=== PATIENT | female | born 2000 | race African-American/Black ===

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

== ENCOUNTER 2019-02-07 14:31 | Emergency (ER) | payer SELFPAY ==
--- NOTE | 2019-02-07 15:30 | ER Document Report ---
ED Medical Screen (RME) - General Chief Complaint: Vag Bleeding, +preg <12wks Stated Complaint: VAGINAL BLEEDING Time Seen by Provider: 02/07/19 15:25 TRAVEL OUTSIDE OF THE U.S. IN LAST 30 DAYS: No - HPI Notes: 02/07/19 15:29 Patient is a 18-year-old female approximately 6 weeks by gestation who presents complaining of bleeding, cramping that began 2 days ago. She still able to eat and drink without difficulty. She is urinating normally and having normal bowel movements. She has no concern of STD or STI. Denies drug allergies. No other surgical history to her abdomen. Denies MARKS, fever, neck pain, URI, CP, SOB, dysuria, back pain, or rash. I have treated and performed a rapid initial assessment of this patient. A comprehensive ED assessment and evaluation of the patient, analysis of test results and completion of medical decision making process will be conducted by additional ED providers. PHYSICAL EXAMINATION: GENERAL: Well-appearing, well-nourished and in no acute distress. A&Ox4. Answers questions appropriately. LUNGS: Breath sounds clear to auscultation bilaterally and equal. No wheezes rales or rhonchi. HEART: Regular rate and rhythm without murmurs, rubs, gallops. ABDOMEN: Soft, nondistended abdomen. No guarding, no rebound. Normal bowel sounds present. No CVA tenderness bilaterally. Grossly nontender (cannot elicit thorough abd exam w/o bed, however). - Related Data Allergies/Adverse Reactions: No Known Allergies Allergy (Verified 02/07/19 14:34) Past Medical History - General Last Menstrual Period: 12/21/18 - Social History Frequency of alcohol use: None Drug Abuse: None - Past Medical History Cardiac Medical History: Reports: Hx Hypertension - gestational Pulmonary Medical History: Reports: Hx Asthma Renal/ Medical History: Denies: Hx Peritoneal Dialysis Physical Exam - Vital signs Vitals: Temp Pulse Resp BP Pulse Ox 98.2 F 68 18 131/68 H 99 02/07/19 14:55 02/07/19 14:55 02/07/19 14:55 02/07/19 14:55 02/07/19 14:55 Course - Vital Signs Vital signs: Temp Pulse Resp BP Pulse Ox 98.2 F 68 18 131/68 H 99 02/07/19 14:55 02/07/19 14:55 02/07/19 14:55 02/07/19 14:55 02/07/19 14:55
[2019-02-07 16:31] LABS: APPEARANCE,URINE SLIGHTLY-CLOUDY; BILIRUBIN,URINE NEGATIVE (NEGATIVE); COLOR,URINE YELLOW; GLUCOSE, URINE NEGATIVE (NEGATIVE); KETONES,URINE NEGATIVE (NEGATIVE); LEUKOCYTE ESTERASE,URINE TRACE (NEGATIVE); NITRITE,URINE NEGATIVE (NEGATIVE); PROTEIN,URINE 30 mg/dL (NEGATIVE); URINE SPECIFIC GRAVITY 1.017
[2019-02-07 16:34] LABS: ABSOLUTE BASOPHILS # (AUTO) 0.1 10^3/uL (0.0-0.2); ABSOLUTE EOSINOPHILS # (AUTO) 0.4 10^3/uL (0.0-0.6); ABSOLUTE LYMPHOCYTES (AUTO) 2.9 10^3/uL (0.5-4.7); ABSOLUTE MONOCYTES (AUTO) 0.7 10^3/uL (0.1-1.4); ABSOLUTE NEUT (AUTO) 3.6 10^3/uL (1.7-8.2); BASOPHILS % (AUTO) 0.8 % (0-2); EOSINOPHILS % (AUTO) 4.7 % (0-6); HEMATOCRIT 39.7 % (36.0-47.0); LYMPHOCYTES % (AUTO) 38.3 % (13-45); MEAN CORPUSCULAR HEMOGLOBIN 24.5 pg (27.0-33.4); MEAN CORPUSCULAR HGB CONC 32.8 g/dL (32.0-36.0); MEAN CORPUSCULAR VOLUME 75 fl (80-97); MONOCYTES % (AUTO) 8.6 % (3-13); PLATELET COUNT 270 10^3/uL (150-450); RED BLOOD COUNT 5.33 10^6/uL (3.72-5.28); RED CELL DISTRIBUTION WIDTH 15.4 % (11.5-14.0); SEGMENTED NEUTROPHILS % (AUTO) 47.6 % (42-78); TOTAL CELLS COUNTED % (AUTO) 100 %; WHITE BLOOD COUNT 7.7 10^3/uL (4.0-10.5)
--- NOTE | 2019-02-07 17:20 | RADIOLOGY REPORT (SQ) ---
EXAM DESCRIPTION: U/S OB TRANSVAG W/DOPPLER COMPLETED DATE/TIME: 02/07/2019 4:46 pm REASON FOR STUDY: bleeding/ COMPARISON: None. TECHNIQUE: Transvaginal static and realtime grayscale images acquired of the pelvis. Additional florina cted spectral and color Doppler images recorded. All images stored on PACs. bHCG: Not available. CLINICAL DATES: 6 weeks, 6 days LIMITATIONS: None. FINDINGS: No candidate intrauterine gestation identified. UTERUS: No masses. No anomalies. CERVICAL LENGTH: 3.6 cm Closed. RIGHT ADNEXA: Normal ovary with normal vascular flow. No adnexal free fluid. No adnexal masses. LEFT ADNEXA: Normal ovary with normal vascular flow. No adnexal free fluid. No adnexal masses. FREE FLUID: Small volume nonspecific free fluid in the posterior cul-de-sac. OTHER: No other significant finding. IMPRESSION: 1. No candidate intrauterine gestation identified. Early of unknown location . Recommend ectopic precautions, serial beta HCG, and follow-up ultrasound in 7 to 14 days to ensure continued viability and development. 2. Small volume nonspecific free fluid in the posterior cul-de-sac. Trimester of : First - 0 to 13 weeks. TECHNICAL DOCUMENTATION: JOB ID: [id number] [employer]- All Rights Reserved rev-01/16 Reading location - IP/workstation name: [email or web address]
[2019-02-07] MEDS ORDERED: OXYCODONE-ACETAMINOPHEN 5-325 MG TABLET PO ONE (17:35)
--- NOTE | 2019-02-07 17:57 | ER Document Report ---
ED General - General Chief Complaint: Vag Bleeding, +preg <12wks Stated Complaint: VAGINAL BLEEDING Time Seen by Provider: 02/07/19 15:25 Mode of Arrival: Ambulatory Information source: Patient TRAVEL OUTSIDE OF THE [place].S[place] IN LAST 30 DAYS: No - HPI Patient complains to provider of: Early , back pain, pelvic cramping, vaginal bleeding Onset: Other - 2 days ago Onset/Duration: Persistent Quality of pain: Cramping, Sharp Severity: Severe Pain Level: 5 Associated symptoms: None Exacerbated by: Denies Relieved by: Denies Similar symptoms previously: No Recently seen / treated by doctor: No Notes: 18-year-old -[place] female 3 para 2 approximately 6 weeks gestation with heavy vaginal bleeding with clots, bad pelvic cramping and low back pain. Symptoms for 2 days. Also feeling dizzy. - Related Data Allergies/Adverse Reactions: No Known Allergies Allergy (Verified 02/07/19 14:34) Past Medical History - General Information source: Patient Last Menstrual Period: 12/21/18 - Social History Smoking Status: Never Smoker Frequency of alcohol use: None Drug Abuse: None Family History: None, Reviewed & Not Pertinent Patient has suicidal ideation: No Patient has homicidal ideation: No - Past Medical History Cardiac Medical History: Reports: Hx Hypertension - gestational Pulmonary Medical History: Reports: Hx Asthma Renal/ Medical History: Denies: Hx Peritoneal Dialysis Review of Systems - Review of Systems Notes: Constitutional: No fevers. No chills. EENT: No eye redness. No eye pain. No ear pain. No sore throat. Cardiovascular: No chest pain. No palpitations. Respiratory: No cough. No shortness of breath. No respiratory distress. Gastrointestinal: No abdominal pain. No nausea, vomiting, or diarrhea. Genitourinary: Positive for pelvic bleeding, pelvic pain, cramps Musculoskeletal: Atraumatic. No swelling. No deformities. Skin: No rash or lesions. Lymphatic: No swollen lymph nodes. Neurologic: No headache. No syncope. Psychiatric: No suicidal or homicidal ideation. Physical Exam - Vital signs Vitals: Temp Pulse Resp BP Pulse Ox 98.2 F 68 18 131/68 H 99 02/07/19 14:55 02/07/19 14:55 02/07/19 14:55 02/07/19 14:55 02/07/19 14:55 - Notes Notes: General: Well-developed, well-nourished. In no acute distress. Non-toxic appearing. Cardiac: Well-perfused. Regular rate and rhythm. No murmurs, rubs, or gallops. Pulmonary: No respiratory distress. No cyanosis. Bilateral lung fiels are clear to auscultation. Abdominal: Bilateral abdominopelvic tenderness. No guarding or rebound. Nondistended. Bowel sounds present all 4 quadrants HEENT: Head is atraumatic. Conjunctivae not reddened. No tearing. PERRL. EOMI. Orbits atraumatic. No periorbital swelling or erythema. Oropharynx is without erythema, swelling, or exudates. Neck: Supple. No adenopathy. No meningismus. Dermatologic: Warm with good turgor. No rash. Atraumatic. Chest: Atraumatic. No chest wall tenderness to palpation. Musculoskeletal: Moves all extremities well. No range of motion deficits. no muscular or joint tenderness. No paraspinal muscle tenderness. no midline spinal tenderness or step-off. Genitourinary: Examination deferred Neurologic: No gross neurologic deficits. Psychiatric: Normal mood. Course - Re-evaluation Re-evalutation: 02/07/19 18:07 Usual threatened orders entered in [facility]. We will see what shows up. 02/07/19 18:09 Labs reviewed. hCG less than 2. Qualitative test negative. No evidence of intrauterine gestation. Seems a little bit odd for the patient to already have a negative test after 2 days of bleeding even if she was 6 weeks along. I questioned her about whether that was possible and she said that another hospital had confirmed that she was . In any event her beta is less than 2 her qualitative is negative and her pelvic ultrasound shows no evidence of IUP. We will treat this as a miscarriage. I will have her follow-up with the health department as needed. Naproxen as a prescription for pain. - Vital Signs Vital signs: Temp Pulse Resp BP Pulse Ox 98.2 F 68 18 131/68 H 99 02/07/19 14:55 02/07/19 14:55 02/07/19 14:55 02/07/19 14:55 02/07/19 14:55 - Laboratory Result Diagrams: 02/07/19 16:10 Laboratory results interpreted by me: 02/07/19 02/07/19 16:10 16:10 RBC 5.33 H MCV 75 L MCH 24.5 L RDW 15.4 H Urine Protein 30 H Urine Blood LARGE H Urine Urobilinogen 2.0 H Ur Leukocyte Esterase TRACE H Discharge - Discharge Clinical Impression: Miscarriage Condition: Good Disposition: HOME, SELF-CARE Instructions: Miscarriage (OM) Additional Instructions: Continue taking vitamins. This will help to compensate for blood loss. Naproxen sodium prescription as needed for abdominal cramps. If you develop a bleeding excessive 1 pad per hour or you get dizzy, shortness of breath, lightheadedness or faintness please return to the ED for recheck. Follow-up with your healthcare provider prior to attempting to get again. Forms: Elevated Blood Pressure [facility] - Follow up as needed
[2019-02-07 18:20] VITALS: BP 123/73
== END 2019-02-07 18:20 | disposition home or self-care (01) ==
LOC: ER 14:31
DX: O03.9 Complete or unspecified spontaneous abortion without complication (principal); R10.2 Pelvic and perineal pain; M54.5 Low back pain; R42 Dizziness and giddiness; J45.909 Unspecified asthma, uncomplicated
CPT/HCPCS: 36415; 76817; 81001; 84702; 85025; 86900; 86901; 93976; 99284